=== PATIENT | female | born 1975 ===

== ENCOUNTER 2020-04-17 18:32 | Emergency (ER) | payer SELFPAY ==
[2020-04-17] MEDS ORDERED: LIDOCAINE 1% MPF 5 ML VIAL ONE (19:38)
[2020-04-17] MEDS ORDERED: TETANUS & DIPHTHERIA TOX,ADULT 0.5 ML VIAL ONE (19:39)
--- NOTE | 2020-04-17 20:09 | RAD REPORT ---
EXAM DESCRIPTION: RAD - Hand Left 3 View - 04/17/2020 7:29 pm CLINICAL HISTORY: PAIN, laceration near the left hilum COMPARISON: None. FINDINGS: No fracture, dislocation or periosteal reaction noted. No foreign body or other soft tissu e abnormality. IMPRESSION: Negative left hand examination.
--- NOTE | 2020-04-17 20:40 | EDPHYS ---
Physician Documentation [facility] Name: Elvira Davidson Age: 44 yrs Sex: Female : 1975 Arrival Date: 04/17/2020 Time: 18:33 Bed 17 Private MD: ED Physician Ben Diaz HPI: 04/17 19:37 This 44 yrs old Female presents to ER via Ambulatory with complaints of Laceration to Thumb. 19:37 The patient has a laceration related to: cooking, from a broken glass, occurred at home, and there are no complicating factors. The injury was accidental. The laceration(s) is(are) located on the palmar aspect of proximal phalanx of left thumb. Onset: The symptoms/episode began/occurred just prior to arrival. Associated signs and symptoms: The patient has no apparent associated signs or symptoms. The patient has not experienced similar symptoms in the past. The patient has not recently seen a physician. 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 - Social history:: Smoking status: Patient denies any tobacco usage or history of. ROS: 19:36 Constitutional: Negative for fever, chills, and weight loss, Cardiovascular: Negative kb for chest pain, palpitations, and edema, Respiratory: Negative for shortness of breath, cough, wheezing, and pleuritic chest pain, Abdomen/GI: Negative for abdominal pain, nausea, vomiting, diarrhea, and constipation, Back: Negative for injury and pain, MS/Extremity: Negative for injury and deformity, Neuro: Negative for headache, weakness, numbness, tingling, and seizure. 19:36 Skin: Positive for laceration(s), of the palmar aspect of proximal phalanx of left thumb. Exam: 19:36 Constitutional: This is a well developed, well nourished patient who is awake, alert, kb and in no acute distress. Head/Face: Normocephalic, atraumatic. Chest/axilla: Normal chest wall appearance and motion. Nontender with no deformity. No lesions are appreciated. Cardiovascular: Regular rate and rhythm with a normal S1 and S2. No gallops, murmurs, or rubs. Normal PMI, no JVD. No pulse deficits. Respiratory: Lungs have equal breath sounds bilaterally, clear to auscultation and percussion. No rales, rhonchi or wheezes noted. No increased work of breathing, no retractions or nasal flaring. Abdomen/GI: Soft, non-tender, with normal bowel sounds. No distension or tympany. No guarding or rebound. No evidence of tenderness throughout. MS/ Extremity: Pulses equal, no cyanosis. Neurovascular intact. Full, normal range of motion. Neuro: Awake and alert, GCS 15, oriented to person, place, time, and situation. Cranial nerves II-XII grossly intact. Motor strength 5/5 in all extremities. Sensory grossly intact. Cerebellar exam normal. Normal gait. 19:36 Skin: injury, laceration(s), the wound is approximately 2 cm(s), of the palmar aspect of proximal phalanx of left thumb, that can be described as clean, no foreign body, linear, with mild bleeding. Vital Signs: 18:55 BP 123 / 93; Pulse 78; Resp 15; Temp 98.3(TE); Pulse Ox 97% on R/A; Weight 56.7 kg; ss Height 5 ft. 5 in. (165.10 cm); Pain 0/10; 20:26 BP 102 / 77; Pulse 67; Resp 18; Pulse Ox 99% on R/A; wh 18:55 Body Mass Index 20.80 (56.70 kg, 165.10 cm) Laceration: 20:43 Wound Repair of 2cm ( 0.8in ) subcutaneous laceration to palmar aspect of proximal kb phalanx of left thumb. Linear shaped.. Distal neuro/vascular/tendon intact. Anesthesia: Wound infiltrated with 2 mls of 1% lidocaine. Wound prep: Extensive cleansing with hibiclenz by me, Wound irrigation with saline by me, Wound explored moderately. Skin closed with 5 5-0 Prolene using simple sutures and sterile technique. Patient tolerated well. MDM: 18:59 Patient medically screened. 19:36 Data reviewed: vital signs, nurses notes. Data interpreted: Pulse oximetry: on room air kb is 97 %. Interpretation: normal. 20:43 Counseling: I had a detailed discussion with the patient and/or guardian regarding: the kb historical points, exam findings, and any diagnostic results supporting the discharge/admit diagnosis, radiology results, the need for outpatient follow up, a hand specialist, to return to the emergency department if symptoms worsen or persist or if there are any questions or concerns that arise at home. 04/17 19:13 Order name: Hand Left 3 View XRAY; Complete Time: 20:11 kb 04/17 19:13 Order name: Prolene, Sutures; Complete Time: 19:34 kb 04/17 19:13 Order name: Dressing - Wound; Complete Time: 19:34 kb 04/17 19:13 Order name: Gloves, Sterile; Complete Time: 19:34 kb 04/17 19:13 Order name: Setup Suture Tray; Complete Time: 19:35 kb Administered Medications: 19:34 Drug: Tetanus-Diphtheria Toxoid Adult 0.5 ml {Certified Orthotic Fitter: [email or web address]. Exp: 08/15/2022. Lot #: [id number]. } Route: IM; Site: right deltoid; 20:16 Follow up: Response: No adverse reaction 20:16 Drug: Lidocaine (1 %) 1 vials {Note: Administered by Provider.} Volume: 5 ml; Route: wh Infiltration; Disposition: 04/17/20 20:39 Discharged to Home. Impression: Laceration without foreign body of left thumb without damage to nail. - Condition is Stable. - Discharge Instructions: Laceration Care, Adult, [id number]. - Medication Reconciliation Form, Thank You Letter, Antibiotic Education, Prescription Opioid Use form. - Follow up: Emergency Department; When: As needed; Reason: Worsening of condition. Follow up: Private Physician; When: 2 - 3 days; Reason: Recheck today's complaints, Continuance of care, Re-evaluation by your physician. Follow up: Car Cha MD; When: 2 - 3 days; Reason: Recheck today's complaints. Addendum: 04/19/2020 06:41 Co-signature as Attending Physician, Ben Diaz MD I agree with the assessment and k dr plan of care. Signatures: Dispatcher [employer] EDDC Lilibeth Sandoval, TALHA-C TALHA-Ben Sal MD MD kdr Smirch, Shelby, RN RN Kd Flores Corrections: (The following items were deleted from the chart) 04/17 20:40 20:39 04/17/2020 20:39 Discharged to Home. Impression: Laceration without foreign body kb of left thumb without damage to nail. Condition is Stable. Forms are Medication Reconciliation Form, Thank You Letter, Antibiotic Education, Prescription Opioid Use. Follow up: Emergency Department; When: As needed; Reason: Worsening of condition. Follow up: Private Physician; When: 2 - 3 days; Reason: Recheck today's complaints, Continuance of care, Re-evaluation by your physician. kb 20:47 20:40 04/17/2020 20:39 Discharged to Home. Impression: Laceration without foreign body wh of left thumb without damage to nail. Condition is Stable. Forms are Medication Reconciliation Form, Thank You Letter, Antibiotic Education, Prescription Opioid Use. Follow up: Emergency Department; When: As needed; Reason: Worsening of condition. Follow up: Private Physician; When: 2 - 3 days; Reason: Recheck today's complaints, Continuance of care, Re-evaluation by your physician. Follow up: Car Cha; When: 2 - 3 days; Reason: Recheck today's complaints. kb
--- NOTE | 2020-04-17 20:40 | ER ---
Nurse's Notes [facility] Name: Elvira Davidson Age: 44 yrs Sex: Female : 1975 Arrival Date: 04/17/2020 Time: 18:33 Bed 17 Private MD: Diagnosis: Laceration without foreign body of left thumb without damage to nail Presentation: 04/17 18:55 Chief complaint: Patient states: Laceration to L thumb sustained by glass while ss preparing dinner. No active bleeding noted at this time. Injury occurred at 1800 this evening. Coronavirus screen: Client denies travel out of the [place] in the last 14 days. At this time, the client does not indicate any symptoms associated with coronavirus-19. Ebola Screen: Patient denies exposure to infectious person. Patient denies travel to an Ebola-affected area in the 21 days before illness onset. Initial Sepsis Screen: Does the patient meet any 2 criteria? No. Patient's initial sepsis screen is negative. Does the patient have a suspected source of infection? No. Patient's initial sepsis screen is negative. Risk Assessment: Do you want to hurt yourself or someone else? Patient reports no desire to harm self or others. Onset of symptoms was April 17, 2020. 18:55 Method Of Arrival: Ambulatory ss 18:55 Acuity: FELECIA 4 ss Triage Assessment: 19:15 General: Appears in no apparent distress. Behavior is calm, cooperative, appropriate wh for age. Pain: Complains of pain in palmar aspect of proximal phalanx of left thumb. EENT: No signs and/or symptoms were reported regarding the EENT system. Neuro: Level of Consciousness is awake, alert, obeys commands, Oriented to person, place, time, situation, Appropriate for age. Cardiovascular: Capillary refill < 3 seconds. Respiratory: Airway is patent Respiratory effort is even, unlabored, Respiratory pattern is regular, symmetrical. GI: Abdomen is flat, non-distended. : No signs and/or symptoms were reported regarding the genitourinary system. Derm: Skin is intact, is healthy with good turgor, Skin is pink, warm \T\ dry. normal. Musculoskeletal: Circulation, motion, and sensation intact. Injury Description: Laceration sustained to palmar aspect of proximal phalanx of left thumb is clean, a small amount of bleeding noted at this time. 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 - Social history:: Smoking status: Patient denies any tobacco usage or history of. Screenin:15 Abuse screen: Denies threats or abuse. Denies injuries from another. Nutritional screening: No deficits noted. Tuberculosis screening: No symptoms or risk factors identified. Fall Risk None identified. Assessment: 20:25 Reassessment: Patient appears in no apparent distress at this time. No changes from previously documented assessment. Patient and/or family updated on plan of care and expected duration. Pain level reassessed. Patient is alert, oriented x 3, equal unlabored respirations, skin warm/dry/pink. Vital Signs: 18:55 BP 123 / 93; Pulse 78; Resp 15; Temp 98.3(TE); Pulse Ox 97% on R/A; Weight 56.7 kg; ss Height 5 ft. 5 in. (165.10 cm); Pain 0/10; 20:26 BP 102 / 77; Pulse 67; Resp 18; Pulse Ox 99% on R/A; wh 18:55 Body Mass Index 20.80 (56.70 kg, 165.10 cm) ED Course: 18:33 Patient arrived in ED. bp1 18:56 Triage completed. ss 18:57 Arm band placed on right wrist. 18:59 Lilibeth aSndoval FNP-C [facility]. kb 18:59 Ben Diaz MD is Attending Physician. kb 19:15 Patient has correct armband on for positive identification. Bed in low position. Call light in reach. Side rails up X 1. Pulse ox on. NIBP on. 19:21 Kd Harrell is Primary Nurse. 19:29 Hand Left 3 View XRAY In Process Unspecified. EDMS 20:25 Assist provider with laceration repair on palmar aspect of proximal phalanx of left thumb that was 2.5 cm. or less using sutures. Set up tray. Performed by Lilibeth RICK Dressed with 4X4s, Patient tolerated well. Patient did not have IV access during this emergency room visit. 20:40 Car Cha MD is Referral Physician. Administered Medications: 19:34 Drug: Tetanus-Diphtheria Toxoid Adult 0.5 ml {Lead Assistant Manager: [employer]. Exp: 08/15/2022. Lot #: [id number]. } Route: IM; Site: right deltoid; 20:16 Follow up: Response: No adverse reaction 20:16 Drug: Lidocaine (1 %) 1 vials {Note: Administered by Provider.} Volume: 5 ml; Route: wh Infiltration; Outcome: 20:39 Discharge ordered by . 20:47 Discharged to home ambulatory. 20:47 Condition: stable 20:47 Discharge instructions given to patient, Instructed on discharge instructions, follow up and referral plans. wound care, Demonstrated understanding of instructions, follow-up care, wound care. 20:47 Patient left the ED. Signatures: Dispatcher [employer] EDMS Lilibeth Sandoval, SUPERVISOR FLESHING-C SUPERVISOR FLESHING-Aviva Hall RN RN Kd Flores Prerna Elder
[2020-04-17 21:26] VITALS: TEMP 98.3
[2020-04-17 21:27] VITALS: BP 102/77; O2SAT 99
== END 2020-04-17 20:47 | disposition home or self-care (01) ==
LOC: ER 18:32
PROC: 0JQK0ZZ Repair Left Hand Subcutaneous Tissue and Fascia, Open Approach (ICD-10-PCS; principal; 2020-04-17)
DX: S61.012A Laceration without foreign body of left thumb without damage to nail, initial encounter (principal); W25.XXXA Contact with sharp glass, initial encounter; Y93.G3 Activity, cooking and baking; Y92.000 Kitchen of unspecified non-institutional (private) residence as the place of occurrence of the external cause; Z23 Encounter for immunization
CPT/HCPCS: 90471; 90714; 99284